=== PATIENT | female | born 1980 | race Two or more races ===

== ENCOUNTER 2018-05-16 15:15 | Inpatient (IN) | payer OTHER ==
[~2018-05-16] VITALS: Ht 170.2 cm; Wt 76.2 kg
[2018-06-04] MEDS ORDERED: PRENATAL VITAM1 EAC2 PO (08:05)
== END 2018-06-06 11:25 | DRG 807 ==
LOC: LDR 06-04 06:21 → SURG-SUITE 06-04 13:38 → OB/GYN 06-08 15:15
PROVIDERS: ADMIT Obstetrics & Gynecology
PROC: 10E0XZZ Delivery of Products of Conception, External Approach (ICD-10-PCS; principal; 2018-06-04)
PROC: 0KQM0ZZ Repair Perineum Muscle, Open Approach (ICD-10-PCS; 2018-06-04)
PROC: 4A1HXCZ Monitoring of Products of Conception, Cardiac Rate, External Approach (ICD-10-PCS; 2018-06-04)
PROC: 4A033R1 Measurement of Arterial Saturation, Peripheral, Percutaneous Approach (ICD-10-PCS; 2018-06-04)
DX: O70.1 Second degree perineal laceration during delivery (principal); Z37.0 Single live birth; Z3A.38 38 weeks gestation of pregnancy